=== PATIENT | male | born 1935 | race Caucasian/White ===

== ENCOUNTER 2017-02-22 20:17 | Inpatient (IN) | payer OTHER, BC ==
[~2017-02-22] VITALS: Ht 188 cm; Wt 84.4 kg
[~2017-02-22 20:17] MED LIST: AMLODIPINE5 M1; APAP/HYDROCODON1 T13 PO; CLINDAMYCIN HC300 MG PO; LAC PO; LASIX40 MG PO; LEVAQUIN750 MG PO; LOP50 PO; PROVENTIL0.09 MG/A1 INH; ZESTRIL20 MG PO
[2017-02-22 22:49] LABS: BASOPHIL % 0.1 % (0-2); PLATELET COUNT 194 x10^3mcL (130-400); RED CELL DISTRIBUTION WIDTH 13.1 % (11.5-14.5)
[2017-02-22 22:55] LABS: CARBON DIOXIDE 30.6 mmol/L (21-32); CHLORIDE SERUM 106 mmol/L (98-107); GLUCOSE SERUM 110 mg/dL (74-106); POTASSIUM SERUM 4.3 mmol/L (3.5-5.1); SODIUM SERUM 145 mmol/L (136-145)
[2017-02-22 23:00] LABS: ALBUMIN 3.8 g/dL (3.4-5.0); ALKALINE PHOSPHATASE 88 U/L (46-116); ALT/SGPT 41 U/L (16-63); AST/SGOT 30 U/L (15-37); BILIRUBIN TOTAL 0.6 mg/dL (0.20-1.00); TOTAL PROTEIN, SERUM 7.4 g/dL (6.4-8.2)
[2017-02-22 23:44] LABS: microscopic required? YES; urine erythrocyte NEGATIVE (NEGATIVE)
[2017-02-23] VITALS (13 sets, daily range): BP systolic 15–193; BP diastolic 56–94
[2017-02-23] MEDS ORDERED: LASIX40 MG PO (01:15)
[2017-02-23] MEDS ORDERED: METOPROLOL SUCC50 M2 PO (01:15)
[2017-02-23] MEDS ORDERED: ZESTRIL40 MG PO (01:16)
[2017-02-23] MEDS ORDERED: ELIQUIS2.5 MG PO (01:16)
[2017-02-23 01:22] LABS: CHOLESTEROL/HDL RATIO 3.1; MAGNESIUM 2.3 mg/dL (1.8-2.4); PHOSPHOROUS 2.9 mg/dL (2.5-4.9)
[2017-02-23 01:30] LABS: FREE T4 1.64 ng/dL (0.76-1.46); FREE THYROXINE INDEX 4.2 ug/dL (1.4-4.5); T4(THYROXINE) 12.4 ug/dL (4.7-13.3)
[2017-02-23 02:39] LABS: T3 TOTAL 1.12 ng/mL
[2017-02-24] VITALS (8 sets, daily range): BP systolic 146–176; BP diastolic 67–86
[2017-02-24 07:18] LABS: CALCIUM 8.3 mg/dL (8.5-10.1); CARBON DIOXIDE 27.4 mmol/L (21-32); CHLORIDE SERUM 109 mmol/L (98-107); CREATININE SERUM 1.1 mg/dL (0.7-1.3); GLUCOSE SERUM 83 mg/dL (74-106); POTASSIUM SERUM 3.5 mmol/L (3.5-5.1); SODIUM SERUM 143 mmol/L (136-145)
[2017-02-24 07:19] LABS: BASOPHIL % 0.2 % (0-2); PLATELET COUNT 145 x10^3mcL (130-400); RED CELL DISTRIBUTION WIDTH 13.1 % (11.5-14.5)
[2017-02-25 05:24] VITALS: BP 132/78
[2017-02-25 07:20] LABS: BASOPHIL % 0.2 % (0-2); PLATELET COUNT 152 x10^3mcL (130-400); RED CELL DISTRIBUTION WIDTH 12.9 % (11.5-14.5)
[2017-02-25 07:29] LABS: CALCIUM 8.2 mg/dL (8.5-10.1); CARBON DIOXIDE 28.5 mmol/L (21-32); CHLORIDE SERUM 107 mmol/L (98-107); CREATININE SERUM 1.1 mg/dL (0.7-1.3); GLUCOSE SERUM 82 mg/dL (74-106); POTASSIUM SERUM 3.4 mmol/L (3.5-5.1); SODIUM SERUM 144 mmol/L (136-145)
[2017-02-25 09:55] VITALS: BP 161/69
[2017-02-25 13:01] VITALS: BP 156/71
[2017-02-25] MEDS ORDERED: MAC100 PO (14:50)
[2017-02-25] MEDS ORDERED: LAC PO (14:50)
[2017-02-25 15:22] VITALS: BP 156/71
== END 2017-02-25 16:00 | disposition home or self-care (01) | DRG 312 ==
LOC: ED 20:17 → DU 02-23 00:45
PROVIDERS: Emergency Medicine; Student in an Organized Health Care Education/Training Program; ADMIT Family Medicine Sports Medicine
DX: R55 Syncope and collapse (principal); N39.0 Urinary tract infection, site not specified; I34.1 Nonrheumatic mitral (valve) prolapse; I10 Essential (primary) hypertension; E78.5 Hyperlipidemia, unspecified; H35.30 Unspecified macular degeneration; Z68.23 Body mass index [BMI] 23.0-23.9, adult
CPT/HCPCS: 83880; 84439; J0696; J3490; J7030; J7042; J8597; Q0092